=== PATIENT | male | born 1960 | race Caucasian/White ===

== ENCOUNTER 2018-10-29 08:56 | Emergency (ER) | payer BC ==
[~2018-10-29] VITALS: Ht 185.4 cm; Wt 81.8 kg
[~2018-10-29 08:56] MED LIST: CIPRO 500MG TA500 MG PO; PYRIDIUM 100MG100 MG PO
[2018-10-29 09:06] VITALS: TEMP 97.3
[2018-10-29] MEDS ORDERED: LOTENSIN40 MG PO (09:08)
[2018-10-29] MEDS ORDERED: LIPITOR20 MG PO (09:08)
[2018-10-29] MEDS ORDERED: COLACE 100100 MG/CAP PO (09:09)
[2018-10-29] MEDS ORDERED: ZYRTEC 10MG10 MG PO (09:09)
[2018-10-29] MEDS ORDERED: ASPIRIN E.C. 8181 MG PO (09:09)
[2018-10-29] MEDS ORDERED: MULTI VITAMINS1 TAB PO (09:09)
[2018-10-29 10:42] VITALS: BP 151/106; PULSE 84
[2018-10-29] MEDS ORDERED: NORCO 325 MG-7.1 TAB PO (10:47)
== END 2018-10-29 10:50 | disposition home or self-care (01) ==
LOC: COL.ER 08:56
DX: S59.901A Unspecified injury of right elbow, initial encounter (principal); I10 Essential (primary) hypertension; E78.5 Hyperlipidemia, unspecified; Z90.49 Acquired absence of other specified parts of digestive tract; W22.8XXA Striking against or struck by other objects, initial encounter; Y92.009 Unspecified place in unspecified non-institutional (private) residence as the place of occurrence of the external cause
CPT/HCPCS: Q4050

== ENCOUNTER 2020-02-22 12:24 | Emergency (ER) | payer BC ==
[~2020-02-22] VITALS: Ht 188 cm; Wt 86.4 kg
[~2020-02-22 12:24] MED LIST changes: +ASPIRIN E.C. 8181 MG PO; +COLACE 100100 MG/CAP PO; +LIPITOR 40MG TA40 MG PO; +LOTENSIN40 MG PO; +MULTI VITAMINS1 TAB PO; +NORCO 325 MG-7.1 TAB PO; +ZYRTEC 10MG10 MG PO
[2020-02-22 12:35] VITALS: TEMP 98.1
[2020-02-22] MEDS ORDERED: CLARITIN 1010 MG/TAB PO (12:50)
[2020-02-22] MEDS ORDERED: ANTIVERT 25MG25 MG PO (12:52)
[2020-02-22] MEDS ORDERED: PRILOSEC 20MG20 MG PO (12:53)
[2020-02-22 13:12] LABS: BASO # 0.1 (0.0-0.2); BASO % 1.2 % (0.0-2.0); EOS # 0.1 (0.0-0.7); GRAN # 2.3 (1.4-6.5); GRAN % 56.6 % (42.2-75.2); HEMATOCRIT 44.5 % (42.0-52.0); HEMOGLOBIN 15.5 g/dl (13.5-18.0); LYMPH # 1.3 (1.2-3.4); LYMPH % 31.8 % (20.0-51.0); MEAN CELL VOLUME 90 fl (80.0-100.0); MEAN CORPUSCULAR HEMOGLOBIN 31 pg (27.0-31.0); MEAN CORPUSCULAR HGB CONC 35 g/dl (33.0-37.0); MEAN PLATELET VOLUME 9.8 fl (7.4-10.4); MONO # 0.3 (0.1-0.6); MONO % 7.9 % (1.7-9.3); PLATELET COUNT 125 K/mm3 (130-400); RED BLOOD COUNT 4.95 M/mm3 (4.20-5.60); REDCELL DISTRIBUTION WIDTH-CV 12.1 % (11.5-14.5)
[2020-02-22 13:22] LABS: ALANINE AMINOTRANSFERASE 83 U/L (4-49); ALBUMIN 5.1 gm/dL (3.5-5.0); ALKALINE PHOSPHATASE 97 U/L (50-136); ANION GAP 12 mmol/L (7-16); AST,SGOT 77 U/L (15-37); BILIRUBIN,TOTAL 1.1 mg/dL (0.0-1.0); BLOOD UREA NITROGEN 13 mg/dL (9-20); CALCIUM 9.6 mg/dL (8.4-10.2); CARBON DIOXIDE 27 mmol/L (22-30); CHLORIDE 101 mmol/L (98-107); CREATININE, serum 0.92 (0.66-1.25); GLUCOSE 111 mg/dL (74-106); POTASSIUM 3.9 mmol/L (3.4-5.0); SODIUM 141 mmol/L (137-145); TOTAL PROTEIN 8.1 gm/dL (6.4-8.2)
[2020-02-22 13:24] LABS: PROTHROMBIN TIME 11.4 SECONDS (9.7-12.8)
[2020-02-22 13:27] LABS: PARTIAL THROMBOPLASTIN TIME 35.7 SECONDS (26.0-37.0)
[2020-02-22 14:07] LABS: TROPONIN-I < 0.012 ng/mL (0.000-0.035)
[2020-02-22] MEDS ORDERED: NORVASC 5MG5 MG/TAB PO (15:44)
[2020-02-22 15:57] VITALS: BP 147/95; PULSE 98
== END 2020-02-22 16:03 | disposition home or self-care (01) ==
LOC: COL.ER 12:24 → ICU 15:06 → COL.ER 15:06 → ICU 16:30
PROVIDERS: Family Medicine
DX: I10 Essential (primary) hypertension (principal); Z79.82 Long term (current) use of aspirin; Z88.0 Allergy status to penicillin; Z88.1 Allergy status to other antibiotic agents
CPT/HCPCS: 99221; J7050

== ENCOUNTER 2020-09-27 14:39 | Emergency (ER) | payer BC ==
[~2020-09-27] VITALS: Ht 185.4 cm; Wt 86.4 kg
[~2020-09-27 14:39] MED LIST changes: +ANTIVERT 25MG25 MG PO; +CLARITIN 1010 MG/TAB PO; +DUO-KAPS1 CAP PO; -MULTI VITAMINS1 TAB PO; +NORVASC 5MG5 MG/TAB PO; +PRILOSEC 20MG20 MG PO
[2020-09-27 14:47] VITALS: TEMP 97.9
[2020-09-27] MEDS ORDERED: ZOLOFT 50MG50 MG PO (15:09)
[2020-09-27] MEDS ORDERED: NORVASC 10MG10 MG PO (15:13)
[2020-09-27] MEDS ORDERED: METAMUCIL3.4 GM/DOS PO (15:14)
[2020-09-27 15:34] LABS: BASO % 0.5 % (0.0-2.0); EOS # 0.1 (0.0-0.7); GRAN # 6.5 (1.4-6.5); GRAN % 78.8 % (42.2-75.2); HEMATOCRIT 42.2 % (42.0-52.0); HEMOGLOBIN 14.5 g/dl (13.5-18.0); LYMPH % 11.8 % (20.0-51.0); MEAN CELL VOLUME 89 fl (80.0-100.0); MEAN CORPUSCULAR HEMOGLOBIN 31 pg (27.0-31.0); MEAN CORPUSCULAR HGB CONC 34 g/dl (33.0-37.0); MEAN PLATELET VOLUME 9.5 fl (7.4-10.4); MONO # 0.6 (0.1-0.6); MONO % 7.7 % (1.7-9.3); PLATELET COUNT 176 K/mm3 (130-400); RED BLOOD COUNT 4.74 M/mm3 (4.20-5.60); REDCELL DISTRIBUTION WIDTH-CV 12.1 % (11.5-14.5)
[2020-09-27 15:52] LABS: ALBUMIN 4.4 gm/dL (3.5-5.0); BILIRUBIN,TOTAL 0.9 mg/dL (0.0-1.0); CALCIUM 8.8 mg/dL (8.4-10.2); CREATININE, serum 1.82 (0.66-1.25); POTASSIUM 3.9 mmol/L (3.4-5.0); TOTAL PROTEIN 7.1 gm/dL (6.4-8.2)
[2020-09-27 16:36] LABS: COLLECTION METHOD CLEAN CATCH
[2020-09-27 16:47] LABS: MUCOUS Present /lpf; PH 5 (5-8); SQUAMOUS EPITHELIAL 0-2 /hpf; URINE APPEARANCE Cloudy; URINE BACTERIA None Seen /hpf; URINE BILIRUBIN Negative (NEGATIVE); URINE BLOOD Negative (NEGATIVE); URINE COLOR Yellow; URINE GLUCOSE Negative (NEGATIVE); URINE KETONE Negative (NEGATIVE); URINE LEUKOCYTE ESTERASE Negative (NEGATIVE); URINE NITRATE Negative (NEGATIVE); URINE PROTEIN(semi-quant) 2+ (NEGATIVE); URINE RBC 0-2 /hpf; URINE UROBILINOGEN Negative (NEGATIVE)
[2020-09-27 17:50] VITALS: BP 124/72; PULSE 87
== END 2020-09-27 17:50 | disposition home or self-care (01) ==
LOC: COL.ER 14:39
PROVIDERS: Physician Assistant
DX: R55 Syncope and collapse (principal); E86.0 Dehydration; I10 Essential (primary) hypertension; E78.5 Hyperlipidemia, unspecified; Z90.89 Acquired absence of other organs; Z88.0 Allergy status to penicillin; Z88.1 Allergy status to other antibiotic agents; Z91.040 Latex allergy status; Z79.82 Long term (current) use of aspirin
CPT/HCPCS: J7030

== ENCOUNTER 2021-04-19 06:59 | Day surgery (SDC) | payer BC ==
[~2021-04-19] VITALS: Ht 185.4 cm; Wt 88.4 kg
[~2021-04-19 06:59] MED LIST changes: +METAMUCIL3.4 GM/DOS PO; +NORVASC 10MG10 MG PO; +ZOLOFT 50MG50 MG PO
[2021-04-19] MEDS ORDERED: EFFEXOR 75M75 MG/TAB PO (07:31)
[2021-04-19 07:49] VITALS: BP 141/98; PULSE 92; TEMP 98.2
[2021-04-19 09:00] VITALS: BP 127/93; PULSE 78; TEMP 97.7
--- NOTE | 2021-04-19 09:00 | NUR ---
PATIENT TRANSPORTED PER CART FROM GI SUITE 1 TO BAY 2 ACCOMPANIED BY ENDO RN. PATIENT AMBULATED FROM CART TO CHAIR SLOW STEADY GAIT WITH 1 ASSIST. PATIENT TALKING WITH STAFF. IN ROOM AND PATIENT SPEAKS WITH . MONITORS APPLIED. VSS ON ROOM AIR. PATIENT DENIES DISCOMFORT AND NAUSEA. VERBAL REPORT RECEIVED.
[2021-04-19 09:15] VITALS: BP 129/95; PULSE 71
--- NOTE | 2021-04-19 09:16 | NUR ---
VSS ON ROOM AIR. PATIENT ALERT AND TALKING WITH . DENIES DISCOMFORT AND NAUSEA. PATIENT DRINKING DIET PEPSI. PATIENT GIVEN PUDDING TO EAT.
[2021-04-19 09:30] VITALS: BP 136/98; PULSE 76
--- NOTE | 2021-04-19 09:30 | NUR ---
VSS ON ROOM AIR. PATIENT DENIES DISCOMFORT AND NAUSEA. PATIENT EATING AND DRINKING WITHOUT PROBLEMS. D DR HANSON IN AND SPEAKS WITH PATIENT AND . 0935 IV DC'D WITH CATHETER TIP INTACT. PRESSURE AND BANDAGE APPLIED. 0940 DISCHARGE INSTRUCTIONS GIVEN VERBAL AND DISCHARGE PACKET GIVEN TO PATIENT. QUESTIONS ANSWERED AND PATIENT VOICED UNDERSTANDING. PATIENT CHANGES INTO STREET CLOTHES. 0947 PATIENT TRANSPORTED PER WHEELCHAIR FROM ENDO UNIT TO PRIVATE VECHILE DRIVEN BY . WITH DISCHARGE PACKET AND PERSONAL BELONGINGS.
== END 2021-04-19 09:47 | disposition home or self-care (01) ==
LOC: SDCO 06:59
DX: Z12.11 Encounter for screening for malignant neoplasm of colon (principal); D12.2 Benign neoplasm of ascending colon; K63.5 Polyp of colon; K62.1 Rectal polyp; K64.0 First degree hemorrhoids; K64.4 Residual hemorrhoidal skin tags; I10 Essential (primary) hypertension; G61.0 Guillain-Barre syndrome; R73.9 Hyperglycemia, unspecified; E78.5 Hyperlipidemia, unspecified; F32.A Depression, unspecified; F41.9 Anxiety disorder, unspecified; Z86.010 Personal history of colon polyps; Z79.82 Long term (current) use of aspirin; Z79.899 Other long term (current) drug therapy; Z90.89 Acquired absence of other organs
CPT/HCPCS: J2704; J3010; J7120

== ENCOUNTER → 2022-10-12 | Outpatient (CLI) | payer BC ==
[~2022-10-12] MED LIST changes: +EFFEXOR 75M75 MG/TAB PO
== END ==
LOC: DIA.ED 07:53
DX: E11.9 Type 2 diabetes mellitus without complications (principal); E78.5 Hyperlipidemia, unspecified; I10 Essential (primary) hypertension
CPT/HCPCS: G0108

== ENCOUNTER 2024-02-04 13:57 | Emergency (ER) | payer BC ==
[~2024-02-04] VITALS: Ht 185.4 cm; Wt 86.4 kg
[2024-02-04 14:00] VITALS: TEMP 97.7
[2024-02-04] MEDS ORDERED: LR 1,000 ML IV ONE (14:15)
[2024-02-04 14:31] LABS: BASO % 0.8 % (0.0-2.0); EOS # 0.2 K/mm3 (0.0-0.7); EOS % 2.9 % (0.0-4.0); GRAN # 3.6 K/mm3 (1.4-6.5); GRAN % 67.7 % (42.2-75.2); HEMOGLOBIN 13.1 g/dl (13.5-18.0); LYMPH # 1.1 K/mm3 (1.2-3.4); LYMPH % 20.6 % (20.0-51.0); MEAN CELL VOLUME 87 fl (80.0-100.0); MEAN CORPUSCULAR HEMOGLOBIN 31 pg (27-31); MEAN CORPUSCULAR HGB CONC 35 g/dl (33.0-37.0); MONO # 0.4 K/mm3 (0.1-0.6); MONO % 7.6 % (1.7-9.3); PLATELET COUNT 140 K/mm3 (130-400); RED BLOOD COUNT 4.26 M/mm3 (4.20-5.60); REDCELL DISTRIBUTION WIDTH-CV 12.8 % (11.5-14.5)
[2024-02-04 14:48] LABS: ALBUMIN 3.9 g/dL (3.4-4.8); BILIRUBIN,TOTAL 0.7 mg/dL (0.2-1.2); CALCIUM 8.7 mg/dL (8.4-10.2); CREATININE, serum 1.09 mg/dL (0.72-1.25); POTASSIUM 4.1 mEq/L (3.5-4.5); TOTAL PROTEIN 6.5 g/dl (6.2-8.1)
[2024-02-04 15:44] VITALS: BP 110/70; PULSE 82
== END 2024-02-04 15:52 | disposition home or self-care (01) ==
LOC: COL.ER 13:57
PROVIDERS: Family Medicine
DX: R55 Syncope and collapse (principal); Z91.040 Latex allergy status
CPT/HCPCS: J7120